=== PATIENT | female | born 1945 | race Hispanic/Latino ===

== ENCOUNTER → 2018-03-25 | Outpatient (CLI) | payer OTHER ==
[~2018-03-25] VITALS: Ht 160 cm; Wt 86.2 kg
[~2018-03-25] MED LIST: REGADENOSON 0.4 MG/5 ML PF SYG IVP SCH
== END | disposition home or self-care (01) ==
LOC: SHCH 08:39 → EDUNIT# 08:50
PROVIDERS: ATTEND Internal Medicine Cardiovascular Disease
DX: I73.9 Peripheral vascular disease, unspecified (principal); I25.10 Atherosclerotic heart disease of native coronary artery without angina pectoris
CPT/HCPCS: 78452; 93017; 96374; A9500 ×2; J2785

== ENCOUNTER 2019-11-16 06:53 | Day surgery (SDC) | payer OTHER ==
[2019-11-14 09:24] LABS: BASOPHILS % (AUTO) 0.7 % (0.0-5.0); EOSINOPHILS % (AUTO) 5.9 % (0.0-8.0); LYMPHOCYTES % (AUTO) 23.7 % (21.0-51.0); MEAN CORPUSCULAR HEMOGLOBIN 29.8 pg (27.0-33.0); MEAN CORPUSCULAR HGB CONC 33.1 g/dL (32.0-36.0); MONOCYTES % (AUTO) 7.5 % (3.0-13.0); NEUTROPHILS % (AUTO) 61.9 % (40.0-77.0); PLATELET COUNT (AUTO) 240 K/uL (130-400); RED CELL DISTRIBUTION WIDTH 13.2 % (11.0-15.5); WHITE BLOOD COUNT (AUTO) 6.8 K/uL (4.8-10.8)
[2019-11-14 09:38] LABS: CREATININE 0.8 mg/dL (0.5-1.5); POTASSIUM 4.1 mmol/L (3.5-5.1)
[2019-11-14 09:49] LABS: APPEARANCE,URINE Clear (CLEAR); BILIRUBIN,URINE Negative (NEGATIVE); COLOR,URINE Yellow (YELLOW); GLUCOSE, URINE (UA) 500 mg/dL (NEGATIVE); KETONES,URINE Negative (NEGATIVE); LEUKOCYTE ESTERASE ,URINE Small (NEGATIVE); NITRATE,URINE Negative (NEGATIVE); OCCULT BLOOD,URINE Negative (NEGATIVE); PROTEIN,URINE Negative (NEGATIVE)
[2019-11-14 09:53] LABS: RBC,URINE 0-1 /HPF (0-1)
[2019-11-14 09:54] LABS: BACTERIA,URINE Few /HPF (None Seen); MUCUS,URINE Few LPF (None Seen); SQUAMOUS EPITHELIAL CELL,UR Few /HPF (0-2)
[2019-11-14 10:06] LABS: INR 0.93 (0.85-1.15); PARTIAL THROMBOPLASTIN TIME 25.2 SEC (26.3-35.5); PROTHROMBIN TIME 10.1 SEC (9.6-11.6)
--- NOTE | 2019-11-15 11:37 | NUR ---
Spoke to Doctor Ackerman and reported urine analysis of positive nitrates from urine taken from patient doctor office but repeat results where negative nitrates however wbc 2-5 , okay to proceed no new orders.
[2019-11-16] VITALS (9 sets, daily range): BP systolic 114–172; BP diastolic 44–62
[~2019-11-16] VITALS: Ht 162.6 cm; Wt 85.8 kg
[~2019-11-16 06:53] MED LIST changes: +ASPI-1443 PO; +ATOR20TA65 PO; +ISOS30TA6 PO; +LEVO50TA11 PO; +LOSA50TA64 PO; +METF-805 PO; +METO-408 PO; +NITR0.4T50 SL; -REGADENOSON 0.4 MG/5 ML PF SYG IVP SCH; +SERT25TA5 PO
--- NOTE | 2019-11-16 07:44 | NUR ---
ASSESSMENT PT HERE FOR PROCEDURE. NO CHEST PAIN, SOB NOTED AT THIS TIME.
[2019-11-16] MEDS ORDERED: SODIUM CHLORIDE 0.9% 1000ML 1,000 ML IV ONE (07:47)
[2019-11-16] MEDS ORDERED: HEPARIN SODIUM 1000UNIT/ML 10ML VIAL ONE (07:58)
[2019-11-16] MEDS ORDERED: NITROGLYCERIN 2 MG/VIAL VIAL IV ONE (07:58)
[2019-11-16] MEDS ORDERED: IOHEXOL-350 50ML VIAL IV ONE (07:59)
[2019-11-16] MEDS ORDERED: IOHEXOL 350 MG/ML 100ML INFUS..BTL IV ONE (07:59)
[2019-11-16] MEDS ORDERED: LIDOCAINE HCL 2% 20ML ONE (07:59)
--- NOTE | 2019-11-16 10:00 | NUR ---
PROCEDURE PT TAKEN TO PROCEDURE VIA BED BY ENGINE SETTER STAFF LAURY CROSS.
[2019-11-16] MEDS ORDERED: NITROGLYCERIN 4.1 GM SPRAY TL ONE (10:28)
[2019-11-16] MEDS ORDERED: ENALAPRILAT DIHYDRATE 1.25 MG/ML 2ML VIAL IVP ONE ×2 (10:30→10:40)
[2019-11-16] MEDS ORDERED: HYDRALAZINE HCL 20 MG/ML VIAL ONE (10:51)
[2019-11-16] MEDS ORDERED: GLUCAGON 1MG KIT 1 MG ML IM PRN (11:00)
[2019-11-16] MEDS ORDERED: DEXTROSE 50%-WATER 50 ML DISP.SYRIN IV PRN (11:00)
--- NOTE | 2019-11-16 11:20 | NUR ---
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 PT INSTRUCTED ON IMPORTANCE OF KEEPING RIGHT LEG STRAIGHT AND NOT LIFTING HEAD UP OFF OF BED. PT VERBALIZED UNDERSTANDING. SITE TO RIGHT GROIN SOFT TO TOUCH. NO BLEEDING, OOZING NOTED.
--- NOTE | 2019-11-16 13:39 | NUR ---
DC DISCHARGE INSTRUCTIONS GIVEN TO PTS OVER TELEPHONE. VERBALIZED UNDERSTANDING.
== END 2019-11-16 15:05 | disposition home or self-care (01) ==
LOC: DAHIP 06:53 → DAH 06:53 → UNDOADMOB 06:53 → EDSTATUS 08:00 → DAH 15:05
PROVIDERS: ATTEND Internal Medicine Cardiovascular Disease
DX: I25.10 Atherosclerotic heart disease of native coronary artery without angina pectoris (principal); E78.5 Hyperlipidemia, unspecified; I10 Essential (primary) hypertension; I25.2 Old myocardial infarction; Z98.84 Bariatric surgery status
CPT/HCPCS: 36415; 71045; 80048; 81001; 82948 ×2; 85025; 85610; 85730; 93005; 93458; A4215; A4216; A4221; A4222; A4223 ×2; A4606; A4663; C1760; C1894; J0360; J1644; J3490 ×4; J7030; Q9965; Q9967

== ENCOUNTER → 2021-04-10 | Outpatient (CLI) | payer OTHER ==
[~2021-04-10] MED LIST changes: -ASPI-1443 PO; -ISOS30TA6 PO; -METF-805 PO; +METF-890 PO; -NITR0.4T50 SL; +SERT-438 PO; -SERT25TA5 PO
== END | disposition home or self-care (01) ==
LOC: RAH 13:51
PROVIDERS: ATTEND Internal Medicine Cardiovascular Disease
DX: M54.12 Radiculopathy, cervical region (principal)
CPT/HCPCS: 72125

== ENCOUNTER → 2021-10-22 | Outpatient (CLI) | payer OTHER ==
[~2021-10-22] MED LIST changes: +REGADENOSON 0.4 MG/5 ML PF SYG IVP SCH
== END | disposition home or self-care (01) ==
LOC: SHCH 08:16
PROVIDERS: ATTEND Internal Medicine Cardiovascular Disease
DX: R07.9 Chest pain, unspecified (principal); R00.2 Palpitations; I10 Essential (primary) hypertension; I25.2 Old myocardial infarction; E78.5 Hyperlipidemia, unspecified; Z95.5 Presence of coronary angioplasty implant and graft
CPT/HCPCS: 78452; 96374; 93017; J2785; A9500 ×2

== ENCOUNTER → 2024-04-27 | Outpatient (CLI) | payer OTHER ==
[~2024-04-27] MED LIST changes: +IOHEXOL 350 MG/ML 100ML INFUS..BTL IV ONE; +METF-1150 PO; -METF-890 PO; -REGADENOSON 0.4 MG/5 ML PF SYG IVP SCH
--- NOTE | 2024-04-27 22:35 | HMCIMG ---
CT CARDIAC ANGIO W/CONT. CCTA HISTORY: Atherosclerotic heart disease COMPARISON: None TECHNIQUE: Multiple sequential axial images of the chest were obtained along with the CT angiogram of the chest study. Patient was given 100 cc of Omnipaque through intravenous route. FINDINGS: There is no evidence of pulmonary nodule or parenchymal disease. No pleural effusion or pericardial effusion is seen. There is no evidence of pneumothorax. There are normal size mediastinal and hilar lymph nodes. The heart is borderline enlarged. Degenerative changes of the thoracolumbar spine are present. IMPRESSION: 1. No evidence of pulmonary nodule or effusion is seen. Please see CT angiogram report of coronary arteries.
--- NOTE | 2024-05-03 16:55 | CARDIOLOGY ---
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 A dedicated, limited window, coronary imaging protocol was used, with single breath-hold, retrospective ECG gating, and automated arrhythmia rejection. 100 cc of low osmolar contrast agent: Omnipaque 350 was delivered via a 18-gauge IV catheter in the right antecubital fossa, using a power injector and followed by 60 cc of normal saline bolus as a chaser. Collimated images were reformatted at 0.5 mm intervals, and sent to an offline independent workstation for interpretation, using 3D anatomic reconstructions: Curved multiplanar reconstructions, maximum intensity projections, and multiplanar imaging. No metoprolol was administered prior to scanning due to low baseline heart rate. 0.8 mg SL nitroglycerin was given. CORONARY ARTERY DESCRIPTIONS: The coronary arteries arise in normal position. Left main coronary artery: Normal caliber vessel that bifurcates into the LAD and LCx. No stenosis. Left anterior descending coronary artery: Normal caliber vessel and gives rise to diagonal and septal branches. There is calcified plaque in the proximal LAD with 20-30% stenosis. There is calcified plaque in the proximal D1 with 30-40% stenosis. Left circumflex coronary artery: Normal caliber, nondominant and gives rise to a large OM branch. No stenosis. Right coronary artery: Large, dominant vessel giving rise to the PL and PDA branches. No stenosis. CAD-RADs: 2, mild non-obstructive CAD. Thoracic Aorta: Normal diameter. Melissa Hinojosa MD Cardiovascular Disease [facility] MELISSA HINOJOSA MD May 03, 2024 16:55
== END | disposition home or self-care (01) ==
LOC: RAH 08:18
PROVIDERS: ATTEND Internal Medicine Cardiovascular Disease
DX: I25.10 Atherosclerotic heart disease of native coronary artery without angina pectoris (principal); R07.9 Chest pain, unspecified; M47.815 Spondylosis without myelopathy or radiculopathy, thoracolumbar region
CPT/HCPCS: 75574; Q9967